=== PATIENT | female | born 1995 ===

== ENCOUNTER 2021-06-04 18:16 | Inpatient (IN) | payer OTHER ==
[~2021-06-04] VITALS: Ht 167.6 cm; Wt 3.2 kg
[2021-06-04] MEDS ORDERED: PRENATABS RX T1 EACH PO (19:03)
[2021-06-04] MEDS ORDERED: ZYRTEC10 M3 PO (19:03)
== END 2021-06-08 11:40 | disposition home or self-care (01) | DRG 787 ==
LOC: LDR 18:16 → SURG-SUITE 06-05 23:32
PROVIDERS: ADMIT Obstetrics & Gynecology; ATTEND Obstetrics & Gynecology
PROC: 3E0P7VZ Introduction of Hormone into Female Reproductive, Via Natural or Artificial Opening (ICD-10-PCS; 2021-06-04)
PROC: 4A1HXFZ Monitoring of Products of Conception, Cardiac Rhythm, External Approach (ICD-10-PCS; 2021-06-04)
PROC: 10D00Z1 Extraction of Products of Conception, Low, Open Approach (ICD-10-PCS; principal; 2021-06-05 20:00)
DX: O62.1 Secondary uterine inertia (principal); O99.12 Other diseases of the blood and blood-forming organs and certain disorders involving the immune mechanism complicating childbirth; D68.0 Von Willebrand disease; O48.0 Post-term pregnancy; O64.0XX0 Obstructed labor due to incomplete rotation of fetal head, not applicable or unspecified; Z3A.40 40 weeks gestation of pregnancy; Z37.0 Single live birth

== ENCOUNTER 2021-06-19 02:40 | Inpatient (IN) | payer OTHER ==
[~2021-06-19] VITALS: Ht 167.6 cm; Wt 89.8 kg
[~2021-06-19 02:40] MED LIST: PRENATABS RX T1 EACH PO; ZYRTEC10 M3 PO
== END 2021-06-27 10:56 | disposition home or self-care (01) | DRG 776 ==
LOC: ER 02:40 → EMR PED 02:41 → OB/GYN 07:08
PROVIDERS: ADMIT Obstetrics & Gynecology; ATTEND Obstetrics & Gynecology
DX: O86.02 Infection of obstetric surgical wound, deep incisional site (principal); O99.13 Other diseases of the blood and blood-forming organs and certain disorders involving the immune mechanism complicating the puerperium; D68.0 Von Willebrand disease; B95.2 Enterococcus as the cause of diseases classified elsewhere